=== PATIENT | female | born 1995 | race Caucasian/White ===

== ENCOUNTER 2021-05-31 03:12 | Emergency (ER) | payer SELFPAY ==
[2021-05-31 03:12] VITALS: BP 127/73; PULSE 71; RESP 20; TEMP 36.3; O2SAT 100
--- NOTE | 2021-05-31 03:28 | PC.NURSE ---
EXPLAINED NEED FOR URINE SPECIMEN, PT DECLINED. STATED I WENT BEFORE I CAME. EXPLAINED NEED FOR GOWN. OFFERED ASSISTANCE TO HELP GET UNDRESSED. BRA UNFASTENED. PT DECLINED ANY FURTHER ASSISTANCE.
[2021-05-31] MEDS: KETOROLAC (*BKC) 60 MG/2 ML VIAL IM (03:40)
--- NOTE | 2021-05-31 03:41 | PC.NURSE ---
APPROVED FOR PT TO HAVE WATER TO ASSIST WITH URINE COLLECTION PER DR DAY. WATER GIVEN.
[2021-05-31 03:52] LABS: Basophils Absolute Auto 0.04 K/mm3 (0.00-0.10); Basophils Percent Auto 0.3 % (0.0-1.0); Hematocrit 36.5 % (35.0-49.0); Hemoglobin 12.3 g/dL (12.0-15.0); Immature Granulocyte Absolute 0.04 K/mm3 (0.00-0.00); Immature Granulocyte Percent A 0.3 % (0.0-0.0); Lymphocytes Percent Auto 47.9 % (18.0-42.0); Mean Corpuscular HGB Conc 33.7 g/dL (32.0-36.0); Mean Corpuscular Hemoglobin 30.8 pg (27.0-31.0); Mean Corpuscular Volume 91.5 fL (78.0-102.0); Mean Platelet Volume 8.6 fl (9.2-11.8); Monocytes Absolute Auto 0.83 K/mm3 (0.10-0.90); Monocytes Percent Auto 7.2 % (2.0-11.0); Neutrophils Absolute Auto 5.1 K/mm3 (1.7-7.2); Neutrophils Percent Auto 44.3 % (50.0-70.0); Platelet Count Result 395 K/mm3 (150-420); Red Blood Count 3.99 M/mm3 (4.20-5.40); Red Cell Distribution Width 11.9 % (11.6-14.4); White Blood Count 11.5 K/mm3 (4.8-10.8)
[2021-05-31 04:07] LABS: Pregnancy On Board Control Positive; Urine Pregnancy Test Positive
[2021-05-31 04:11] LABS: Add Urine Microscopic? NO; Appearance Urine Clear (Clear); Bilirubin Urine Negative (Negative); Blood Urine Negative (Negative); Color Urine Light Yellow (Yellow); Glucose Urine UA Negative (Negative); Ketones Urine Negative (Negative); Leukocyte Esterase Ur Negative LEU/UL (Negative); Nitrate Urine Negative (Negative); Protein Urine Negative (Negative); Urobilinogen Urine 0.2 mg/dL (0.2-1.0)
--- NOTE | 2021-05-31 04:15 | ED.ABDPAIN ---
HPI - Abdominal Pain General Chief Complaint: Abdominal Pain Stated Complaint: PAIN Time Seen by Provider: 05/31/21 03:15 Source: patient Mode of arrival: ambulatory Limitations: no limitations History of Present Illness HPI narrative: Patient comes in with abdominal pain, which she says has been mostly in the LLQ area, sharp relative severe, ongoing since 2:30 am. She had brown vaginal discharge on Tuesday, none since. No fever no chills, she has felt nauseated. MD elicited complaint: abdominal pain Onset (ago): minute(s) Pain Consistency: constant Location: LLQ Severity: moderate Quality: stabbing and sharp Radiation: LLQ Migration to: no migration Exacerbating factors: nothing Relieving factors: nothing Associated symptoms: nausea and anorexia Related Data Hx Last Menstrual Period: 36 days ago Patient : Yes Home Medications Medication Instructions Recorded Confirmed levothyroxine 100 mcg PO DAILY 05/31/21 05/31/21 Allergies Allergy/AdvReac Type Severity Reaction Status Date / Time No Known Allergies Allergy Verified 05/31/21 03:16 Review of Systems Constitutional: Constitutional: Reports no additional constitutional complaints Eyes: Eyes: Reports no additional eye complaints ENT: Reports system reviewed and no additional complaints, except as documented Cardiovascular: Cardiovascular: Reports no additional cardiovascular complaints Respiratory: Respiratory: Reports no additional respiratory complaints Gastrointestinal: Gastrointestinal: Reports no additional gastrointestinal complaints Genitourinary: Genitourinary: Reports no additional female genitourinary complaints Musculoskeletal: Musculoskeletal: Reports no additional musculoskeletal complaints Integumentary/Breasts: Skin/Breast: Reports system reviewed and no additional complaints, except as docu Neurologic: Reports system reviewed and no additional complaints, except as documented Psychiatric: Psychiatric: Reports no additional psychiatric complaints Endocrine: Endocrine: Reports no additional endocrine complaints Hematologic/Lymphatic: Hematologic/Lymphatic: Reports no additional hematologic/lymphatic complaints Allergic/Immunologic: Allergic/Immunologic: Reports no additional allergic/immunologic complaints [facility] Past Medical History Medical History (Updated 05/31/21 @ 05:05 by Alec Cason MD) Tubal Surgical History Surgical History (Updated 05/31/21 @ 05:05 by Alec Cason MD) History of salpingectomy Family History Family History (Updated 05/31/21 @ 05:06 by Alec Cason MD) Other No significant family history Social History Social History (Updated 05/31/21 @ 05:06 by Alec Cason MD) Smoking packs per day: 0.5 Smoking cigarettes per day: 10.0 Smoking status: Current every day smoker Tobacco type: cigarettes Substance use: never Substance use type: does not use Exam Const: General: no acute distress Orientation/consciousness: patient oriented x3 HENMT: Head: normal to inspection Ears: external ears normal and TM's normal bilaterally Mouth: Yes Normal oral and palatal mucosa present Throat: posterior oropharynx normal Eyes: Conjunctivae: conjunctivae normal Neck: Neck: normal visual inspection Chest: Chest palpation & inspection: normal inspection of the chest Resp: Effort & Inspection: normal respiratory effort Auscultation: clear to auscultation bilaterally Cardio: Rate: regular rate GI: GI Palp: Yes Soft to palpation (mild tenderness in llq) Back/Spine/Pelvis: Back: no CVA tenderness Skin: General skin exam: normal color Neuro: General: patient oriented x3 and moves all extremities Extrem: General: normal to inspection Psych: Appearance: grossly normal Mental Status: mental status grossly normal Thought content: Yes Normal thought content present Course Course Emergency Course: test was positive. she needs an ultrasound. Discus
[2021-05-31 04:16] VITALS: BP 119/67; PULSE 78; RESP 18; O2SAT 97
--- NOTE | 2021-05-31 04:39 | PC.NURSE ---
CALL TO [facility], SPOKE TO ALBERTO REGARDING WEEKEND ULTRASOUND AVAILABILITY. AWAITING CALL BACK. PT WANTING TO GO TO [facility] FOR ULTRASOUND. DR MAHONEY CALLING [facility], SPEAKING WITH DR VILLELA. DR VILLELA, REQUESTED PT TO GO TO [place], PT REQUESTED TO CALL [facility]. SPOKE WITH ZEFERINO, AWAITING CALL BACK
[2021-05-31 04:57] VITALS: BP 110/62; PULSE 78; RESP 20; TEMP 37.1; O2SAT 98
[2021-05-31 09:02] LABS: Lactic Acid Reflex 0.9 mmol/L (0.4-2.0)
[2021-05-31 09:08] LABS: Anion Gap 8 mmol/L (8-16); Bilirubin,Total 0.1 mg/dL (0.00-1.00); Blood Urea Nitrogen 12 mg/dL (7-18); Calcium 9.2 mg/dL (8.5-10.1); Carbon Dioxide 25 mmol/L (21-32); Chloride 102 mmol/L (98-108); Estimated CRCL calculation 88 ml/min; Estimated Glomerular Filt Rate > 60; Glucose 100 mg/dL (70-99); Osmolality Calculated 279 mOsm/kg (285-295); Potassium 3.3 mmol/L (3.5-5.1); Sodium 135 mmol/L (136-145)
[2021-05-31 09:09] LABS: Alanine Aminotransferase 24 U/L (14-59); Albumin Level 4.5 g/dL (3.4-5.0); Alkaline Phosphatase 81 U/L (46-116); Aspartate Amino Transferase 40 U/L (15-37); Total Protein 8.4 g/dL (6.4-8.2)
== END 2021-05-31 05:06 | disposition short-term general hospital (02) ==
PROVIDERS: Emergency Provider Emergency Medicine
DX: R10.31 Right lower quadrant pain (principal)
CPT/HCPCS: 36415; 80053; 81003; 81025; 83605; 85025; 96372; 99285; J1885

== ENCOUNTER 2021-12-11 14:29 | Outpatient (CLI) | payer OTHER, SELFPAY ==
[2021-12-11 15:28] LABS: Free T4 Free Thyroxine 1.22 ng/dL (0.76-1.46); Thyroid Stimulating Hormone 0.16 uIU/mL (0.36-3.74)
== END 2021-12-11 14:30 | disposition home or self-care (01) ==
LOC: CHSLAB 14:37
DX: E03.9 Hypothyroidism, unspecified (principal)
CPT/HCPCS: 36415; 84439; 84443

== ENCOUNTER 2022-04-20 14:15 | Outpatient (CLI) | payer OTHER, SELFPAY ==
[2022-04-20 15:34] LABS: Thyroid Stimulating Hormone Reflex 2.38 u/IU/mL (0.36-3.74)
== END 2022-04-20 14:16 | disposition home or self-care (01) ==
LOC: CHSLAB 14:22
DX: E03.9 Hypothyroidism, unspecified (principal)
CPT/HCPCS: 36415; 84443

== ENCOUNTER 2022-05-05 10:02 | Emergency (ER) | payer OTHER, SELFPAY ==
--- NOTE | 2022-05-05 10:16 | ED.DENTAL ---
HPI - Dental/Oral General Chief complaint: Dental/Oral Stated complaint: left side of face swollen tooth pain Time Seen by Provider: 05/05/22 10:17 Source: patient Mode of arrival: ambulatory History of Present Illness HPI Narrative: 27-year-old female with hypothyroidism, bilateral salpingectomy for bilateral tubal pregnancies presents to the ER with -- left lower dental pain -- left facial swelling Complaint: tooth pain and tooth injury Location: Tooth # Teeth map: 1. fracture of tooth 17. Onset (ago): day(s) ( Started 1 day ago) Duration: constant Severity: severe Relieving factors: nothing Exacerbating factors: nothing Treatment prior to arrival: none Related Data Home Medications Medication Instructions Recorded Confirmed levothyroxine 100 mcg tablet 100 mcg PO DAILY 05/31/21 05/31/21 Allergies Allergy/AdvReac Type Severity Reaction Status Date / Time No Known Allergies Allergy Verified 05/31/21 03:16 Review of Systems Review of Systems: All systems reviewed & are unremarkable except as noted in HPI and below Constitutional: Constitutional: Reports as per HPI and Reports no additional constitutional complaints Eyes: Eyes: Reports as per HPI and Reports no additional eye complaints ENT: Reports system reviewed and no additional complaints, except as documented and Reports as per HPI Cardiovascular: Cardiovascular: Reports as per HPI and Reports no additional cardiovascular complaints Respiratory: Respiratory: Reports as per HPI and Reports no additional respiratory complaints Gastrointestinal: Gastrointestinal: Reports as per HPI and Reports no additional gastrointestinal complaints Genitourinary: Genitourinary: Reports no additional female genitourinary complaints and Reports as per HPI Musculoskeletal: Musculoskeletal: Reports no additional musculoskeletal complaints and Reports as per HPI Integumentary/Breasts: Skin/Breast: Reports system reviewed and no additional complaints, except as docu and Reports as per HPI Neurologic: Reports system reviewed and no additional complaints, except as documented and Reports as per HPI Psychiatric: Psychiatric: Reports no additional psychiatric complaints and Reports as per HPI Endocrine: Endocrine: Reports no additional endocrine complaints and Reports as per HPI Hematologic/Lymphatic: Hematologic/Lymphatic: Reports no additional hematologic/lymphatic complaints and Reports as per HPI Allergic/Immunologic: Allergic/Immunologic: Reports no additional allergic/immunologic complaints and Reports as per HPI PMFSH Past Medical History Medical History Tubal Surgical History Surgical History History of salpingectomy Family History Family History Other No significant family history Social History Social History Smoking packs per day: 0.5 Smoking cigarettes per day: 10.0 Smoking status: Current every day smoker Tobacco type: cigarettes Substance use: never Substance use type: does not use Exam Const: General: healthy appearing and no acute distress Nutritional Appearance: well nourished Orientation/consciousness: patient oriented x3 Limitations: no limitations HENMT: Head: normal to inspection Ears: external ears normal General nose exam: Normal external nose present Face and sinus: normal facial exam Mouth: Yes Normal oral and palatal mucosa present Teeth and gingiva: dentition normal ( fracture of tooth 17. Tooth looks healthy ) Throat: posterior oropharynx normal Eyes: Conjunctivae: conjunctivae normal Pupils: Equal, round and reactive pupils present EOM: EOMs intact bilaterally Neck: Neck: normal visual inspection, no lymphadenopathy and no meningeal signs Chest: Chest palpation
[2022-05-05 10:36] VITALS: BP 131/83; PULSE 65; RESP 20; TEMP 36.4; O2SAT 98
[2022-05-05 10:46] VITALS: BP 132/80; PULSE 75; RESP 20; TEMP 36.7; O2SAT 99
== END 2022-05-05 10:45 | disposition home or self-care (01) ==
PROVIDERS: Emergency Provider Internal Medicine Critical Care Medicine
DX: K08.89 Other specified disorders of teeth and supporting structures (principal)
CPT/HCPCS: 99283